=== PATIENT | female | born 1995 | race Caucasian/White ===

== ENCOUNTER 2016-08-25 20:11 | Emergency (ER) | payer OTHER ==
[~2016-08-25] VITALS: Ht 149.9 cm; Wt 45.4 kg
[2016-08-25 20:17] VITALS: TEMP 37; Ht 149.9 cm; Wt 45.4 kg
[2016-08-25] MEDS ORDERED: LORAZEPAM 2 MG/ML 1 ML VIAL IV STA (20:55)
[2016-08-25] MEDS ORDERED: OPTIRAY 320 IV PRN (21:00)
--- NOTE | 2016-08-25 21:03 | EMERGENCY ROOM VISIT NOTE ---
History Report prepared by Tato: Ila Leach Under the Supervision of: Dr. Joe Thomason M.D. First contact with patient: 20:49 Chief Complaint: SHORTNESS OF BREATH Stated Complaint: SOB, SURGERY ON 08/18 Nursing Triage Summary: Reports SOB that started over the weekend, worse with exertion. Denies cough. Reports near syncope as well. Reports recent surgery, on 08/18, removal of appendiz and fallopian tubes. Evaluated at [facility]. History of Present Illness The patient is a 21 year old female who presents to the Emergency Room with complaints of shortness of breath that began a few days ago. It is worse with exertion. She also complains of lightheadedness, "my eyes go black and it feels like I'm going to fall over." The patient notes that she has a history of endometriosis and had surgery last week in [address] Dr[address] Valverde to have her fallopian tubes removed. Her appendix was taken out at that time as well. Her symptoms began after her surgery. Last night, her shortness of breath worsened. Today she was seen at [facility] and was discharged after a CT scan and EKG. She called her surgeon and PCP who both referred her to the emergency room again. The patient does not have a history of blood clots. She notes that she had a pneumothorax after she had back surgery to correct scoliosis about 8 years ago. Source of History: patient Onset: a few days ago Position: other (global) Timing: worsening Modifying Factors (Worsening): exertion Note: other symptoms: lightheadedness Review of Systems See HPI for pertinent positives & negatives. A total of 10 systems reviewed and were otherwise negative. Past Medical & Surgical Medical Problems: (1) Endometriosis (2) Pneumothorax Family History No pertinent family history stated. Social History Smoking Status: Never Smoker Current/Historical Medications Scheduled Control Pills ( Control Pills), 1 TAB PO DAILY Scheduled PRN Lorazepam (Ativan), 1 MG PO Q6H PRN for Anxiety/Agitation Ondansetron Hcl (Zofran), 4 MG PO Q8 PRN for Nausea or Vomiting Oxycodone HCl (Oxycodone HCl), 5 MG PO Q4H PRN for Pain Allergies Coded Allergies: Ciprofloxacin (Verified Allergy, Severe, Ulcers mouth/throat, 08/25/16) Physical Exam Vital Signs Date Time Temp Pulse Resp B/P Pulse Ox O2 Delivery O2 Flow Rate FiO2 08/25/16 23:50 108 24 99/58 99 08/25/16 23:19 117 21 88/64 100 Room Air 08/25/16 22:23 117 96/59 100 Room Air 08/25/16 21:42 124 28 97/66 100 Room Air 08/25/16 21:19 100 Room Air 08/25/16 21:18 100 Room Air 08/25/16 20:47 116 08/25/16 20:17 37.0 143 20 117/65 95 Room Air Physical Exam GENERAL: Patient is a healthy-appearing well-nourished 21 year old female. She is hyperventilating in the room on exam. HEAD: Normocephalic atraumatic EYES: Ocular movements intact pupils equal and react to light OROPHARYNX mucous membranes are moist no exudates present no erythema or edema present NECK: Supple no nuchal rigidity CHEST: Good equal expansion LUNGS: Clear and equal to auscultation CARDIAC: Normal S1 and S2 ABDOMEN: Soft nontender no guarding BACK: No CVA tenderness EXTREMITIES: No pain upon palpation normal muscle strength in all groups no clubbing cyanosis or edema NEURO: Patient is following commands is answering questions appropriately. Alert and oriented x3 Cranial Nerves 2-12 grossly intact Medical Decision & Procedures ER Provider Diagnostic Interpretation: Radiology results as stated below per my review and radiologist interpretation: CHEST CTA for PULMONARY ARTERIES CT DOSE: 173.33 mGy.cm HISTORY: Chest pain dyspnea TECHNIQUE: Multiaxial CT images of the chest were performed following the intravenous administration of contrast to evaluate the pulmonary arteries. Maximal intensity projection images were also obtained. COMPARISON STUDY: None. FINDINGS: Postoperative changes including transverse thoracolumbar spinal stabilization procedure. Fixating hardware appears intact. Thoracic aorta is unremarkable in overall course and caliber. Pulmonary vasculature enhances appropriately. Lungs are considered clear. IMPRESSION: No evidence for pulmonary embolus. The lungs are clear. Electronically signed by: Chaparro Mercado M.D. 08/25/2016 10:06 PM Dictated Date/Time: 08/25/2016 10:04 PM Laboratory Results 08/25/16 21:30 Red Blood Count 3.84, Mean Corpuscular Volume 84.4, Mean Corpuscular Hemoglobin 28.9, Mean Corpuscular Hemoglobin Concent 34.3, Mean Platelet Volume 7.8, Neutrophils (%) (Auto) 57.9, Lymphocytes (%) (Auto) 32.9, Monocytes (%) (Auto) 8.0, Eosinophils (%) (Auto) 0.8, Basophils (%) (Auto) 0.3, Neutrophils # (Auto) 4.50, Lymphocytes # (Auto) 2.55, Monocytes # (Auto) 0.62, Eosinophils # (Auto) 0.06, Basophils # (Auto) 0.02 08/25/16 21:30 Test 08/25/16 21:23 08/25/16 21:30 08/25/16 21:38 Urine Color YELLOW Urine Appearance CLEAR (CLEAR) Urine pH 5.5 (4.5-7.5) Urine Specific [place] > 1.045 (1.000-1.030) Urine Protein NEG (NEG) Urine Glucose (UA) NEG (NEG) Urine Ketones 1+ (NEG) Urine Occult Blood TRACE (NEG) Urine Nitrite NEG (NEG) Urine Bilirubin NEG (NEG) Urine Urobilinogen NEG (NEG) Urine Leukocyte Esterase NEG (NEG) Urine WBC (Auto) 1-5 /hpf (0-5) Urine RBC (Auto) 0-4 /hpf (0-4) Urine Hyaline Casts (Auto) 1-5 /lpf (0-5) Urine Epithelial Cells (Auto) 10-20 /lpf (0-5) Urine Bacteria (Auto) NEG (NEG) White Blood Count 7.76 K/uL (4.8-10.8) Red Blood Count 3.84 M/uL (4.2-5.4) Hemoglobin 11.1 g/dL (12.0-16.0) Hematocrit 32.4 % (37-47) Mean Corpuscular Volume 84.4 fL (80-100) Mean Corpuscular Hemoglobin 28.9 pg (25-34) Mean Corpuscular Hemoglobin Concent 34.3 g/dl (32-36) Platelet Count 323 K/uL (130-400) Mean Platelet Volume 7.8 fL (7.4-10.4) Neutrophils (%) (Auto) 57.9 % Lymphocytes (%) (Auto) 32.9 % Monocytes (%) (Auto) 8.0 % Eosinophils (%) (Auto) 0.8 % Basophils (%) (Auto) 0.3 % Neutrophils # (Auto) 4.50 K/uL (1.4-6.5) Lymphocytes # (Auto) 2.55 K/uL (1.2-3.4) Monocytes # (Auto) 0.62 K/uL (0.11-0.59) Eosinophils # (Auto) 0.06 K/uL (0-0.5) Basophils # (Auto) 0.02 K/uL (0-0.2) RDW Standard Deviation 39.4 fL (36.4-46.3) RDW Coefficient of Variation 12.8 % (11.5-14.5) Immature Granulocyte % (Auto) 0.1 % Immature Granulocyte # (Auto) 0.01 K/uL (0.00-0.02) Est Creatinine Clear Calc Drug Dose 81.7 ml/min Estimated GFR () 133.0 Estimated GFR (Non- 114.7 BUN/Creatinine Ratio 17.7 (10-20) Calcium Level 9.5 mg/dl (8.5-10.1) Total Bilirubin 0.2 mg/dl (0.2-1) Aspartate Amino Transf (AST/SGOT) 22 U/L (15-37) Alanine Aminotransferase (ALT/SGPT) 23 U/L (12-78) Alkaline Phosphatase 64 U/L (45-117) Total Creatine Kinase 35 U/L (26-192) Creatine Kinase MB < 0.5 ng/ml (0.5-3.6) Creatine Kinase MB Ratio (0-3.0) Troponin I < 0.015 ng/ml (0-0.045) Total Protein 8.6 gm/dl (6.4-8.2) Albumin 4.0 gm/dl (3.4-5.0) Globulin 4.6 gm/dl (2.5-4.0) Albumin/Globulin Ratio 0.9 (0.9-2) Bedside Hemoglobin 11.6 g/dl (12.0-16.0) Bedside Hematocrit 34 % (37-47) Bedside Sodium 137 mEq/L (135-144) Bedside Potassium 4.0 mEq/L (3.3-5.0) Bedside Chloride 99 mEq/L (101-112) Bedside Total CO2 25 mEq/l (24-31) Anion Gap 19.0 mmol/L (16-25) Bedside Blood Urea Nitrogen 14 mg/dl (7-18) Bedside Creatinine 0.6 mg/dl Bedside Glucose (other) 121 mg/dl (70-99) Bedside Ionized Calcium (Ron) 1.24 mmol/l Labs reviewed by ED physician. Medications Administered Medications (Trade) Dose Ordered Sig/Michel Route Start Time Stop Time Status Last Admin Dose Admin Lorazepam 0.5 mg 0.5 mg NOW STAT IV 08/25/16 20:55 08/25/16 20:57 DC 08/25/16 21:39 0.5 MG Sodium Chloride (Nss 1000ml) 1,000 ml @ 999 mls/hr Q1H1M STAT IV 08/25/16 22:30 08/25/16 23:30 DC 08/25/16 22:30 999 MLS/HR Lorazepam (Ativan 1MG Home Pack) 1 homepack UD ONCE PO 08/25/16 23:30 08/25/16 23:31 DC 08/25/16 23:48 1 HOMEPACK ECG Indication: SOB/dyspnea Rate (beats per minute): 113 Rhythm: sinus tachycardia Findings: no acute ischemic change, no ectopy ED Course 2050: The patient was evaluated in room A11. A complete history and physical examination was performed. 2054: Ordered Ativan Inj 0.5 mg IV. Medical Decision Differential diagnosis: Etiologies such as infections, reactive airway disease, pneumonia, pneumothorax , COPD, CHF, cardiac ischemia, pulmonary embolism, musculoskeletal, gastrointestinal, as well as others were entertained. This is a 21-year-old female who presents emergency department complaining of shortness of breath after having surgery performed approximately one week ago for endometriosis. The patient also has a history of collapsed lung. The patient is tachycardic upon arrival to the emergency department and does appear to be hyperventilating. For this reason the patient was given 1 mg of Ativan along with a normal saline bolus. Repeat examination revealed improvement the patient's symptoms. Both CAT scan of the chest as well as ultrasound of the lower [place] do not show any evidence of a blood clot. In addition the patient does not have an elevation in her white blood count has a normal EKG as well as normal cardiac enzymes. I believe based on these findings at the patient can be safely discharged home for follow-up with her surgeon. Both patient and significant other were in agreement with the treatment plan. Impression Primary Impression: Dyspnea Additional Impression: Anxiety Scribe Attestation The scribe's documentation has been prepared under my direction and personally reviewed by me in its entirety. I confirm that the note above accurately reflects all work, treatment, procedures, and medical decision making performed by me. Departure Information Dispostion Home / Self-Care Prescriptions Lorazepam (ATIVAN) 1 Mg Tab 1 MG PO Q6H Y for Anxiety/Agitation, #6 TAB Prov: Joe Thomason MD 08/25/16 Referrals No Doctor, Assigned (PCP) Patient Instructions My [facility] Problem Qualifiers Primary Impression: Dyspnea Dyspnea type: unspecified Qualified Codes: R06.00 - Dyspnea, unspecified
[2016-08-25 21:19] VITALS: O2SAT 100
[2016-08-25] MEDS ORDERED: OXYC-609 PO (21:21)
[2016-08-25] MEDS ORDERED: BCPILLS PO (21:21)
[2016-08-25] MEDS ORDERED: ONDA4TAB46 PO (21:21)
[2016-08-25 21:41] LABS: URINE APPEARANCE CLEAR (CLEAR); URINE BILIRUBIN NEG (NEG); URINE COLOR YELLOW; URINE NITRITE NEG (NEG); URINE PH 5.5 (4.5-7.5); URINE SPECIFIC GRAVITY > 1.045 (1.000-1.030); UROBILINOGEN NEG (NEG)
[2016-08-25 21:41] LABS: BASO % 0.3 %; BASO ABS # 0.02 K/uL (0-0.2); COMPLETE YES; EOS % 0.8 %; HEMATOCRIT 32.4 % (37-47); IG% 0.1 %; LYMPH % 32.9 %; LYMPH ABS # 2.55 K/uL (1.2-3.4); MEAN CELL VOLUME 84.4 fL (80-100); MEAN CORPUSCULAR HEMOGLOBIN 28.9 pg (25-34); MEAN CORPUSCULAR HGB CONC 34.3 g/dl (32-36); MEAN PLATELET VOLUME 7.8 fL (7.4-10.4); NEUT % 57.9 %; PLATELET COUNT 323 K/uL (130-400); RED BLOOD COUNT 3.84 M/uL (4.2-5.4); WHITE BLOOD COUNT 7.76 K/uL (4.8-10.8)
[2016-08-25 21:49] LABS: ISTAT CREATININE 0.6 mg/dl; ISTAT HEMOGLOBIN 11.6 g/dl (12.0-16.0); ISTAT IONIZED CALCIUM 1.24 mmol/l
[2016-08-25 22:04] LABS: ALB/GLOB RATIO 0.9 (0.9-2); ALKALINE PHOSPHATASE 64 U/L (45-117); ALT/SGPT 23 U/L (12-78); AST/SGOT 22 U/L (15-37); BLOOD UREA NITROGEN 13 mg/dl (7-18); BUN/CREATININE RATIO 17.7 (10-20); CALCIUM 9.5 mg/dl (8.5-10.1); CARBON DIOXIDE 26 mmol/L (21-32); CHLORIDE 102 mmol/L (98-107); CREATININE 0.75 mg/dl (0.60-1.20); GLUCOSE 112 mg/dl (70-99); SODIUM 138 mmol/L (136-145)
--- NOTE | 2016-08-25 22:07 | DIAGNOSTIC IMAGING REPORT ---
CHEST CTA for PULMONARY ARTERIES CT DOSE: 173.33 mGy.cm HISTORY: Chest pain dyspnea TECHNIQUE: Multiaxial CT images of the chest were performed following the intravenous administration of contrast to evaluate the pulmonary arteries. Maximal intensity projection images were also obtained. COMPARISON STUDY: None. FINDINGS: Postoperative changes including transverse thoracolumbar spinal stabilization procedure. Fixating hardware appears intact. Thoracic aorta is unremarkable in overall course and caliber. Pulmonary vasculature enhances appropriately. Lungs are considered clear. IMPRESSION: No evidence for pulmonary embolus. The lungs are clear. Electronically signed by: Chaparro Mercado M.D. 08/25/2016 10:06 PM Dictated Date/Time: 08/25/2016 10:04 PM
[2016-08-25 22:08] LABS: MANUAL MICROSCOPIC REQUIRED? NO; REVIEW REQ? NO
[2016-08-25] MEDS ORDERED: SODIUM CHLORIDE 0.9% 1000ML 1,000 ML IV STA (22:30)
[2016-08-25] MEDS ORDERED: ATIVAN 1MG HOMEPACK PO ONE (23:30)
[2016-08-25] MEDS ORDERED: ATV/1 PO (23:33)
[2016-08-25 23:50] VITALS: BP 99/58; PULSE 108; O2SAT 99
--- NOTE | 2016-08-26 06:45 | DIAGNOSTIC IMAGING REPORT ---
BILATERAL LOWER EXTREMITY VENOUS DOPPLER CLINICAL HISTORY: Shortness of breath. COMPARISON STUDY: No previous studies for comparison. TECHNIQUE: Sonography of the deep venous system of the bilateral lower extremities was performed. Compression and augmentation were evaluated. FINDINGS: The bilateral common femoral, superficial femoral and popliteal veins were compressible. Augmentation was normal. Flow was shown within the deep calf vessels. IMPRESSION: No evidence of deep venous thrombus within the bilateral lower extremities. Electronically signed by: Fadi Ortez M.D. 08/26/2016 6:43 AM Dictated Date/Time: 08/26/2016 6:43 AM
== END 2016-08-25 23:50 | disposition home or self-care (01) ==
LOC: C.EDB 20:13 → C.EDA 23:50
DX: R06.00 Dyspnea, unspecified (principal); F41.9 Anxiety disorder, unspecified; R00.0 Tachycardia, unspecified; N80.9 Endometriosis, unspecified; Z88.2 Allergy status to sulfonamides